=== PATIENT | male | born 1975 | race Caucasian/White ===

== ENCOUNTER 2021-07-30 21:38 | Emergency (ER) | payer SELFPAY ==
[~2021-07-30] VITALS: Ht 172.7 cm; Wt 75.0 kg
[2021-07-31 02:20] VITALS: BP 130/76
== END 2021-07-31 02:20 | disposition home or self-care (01) ==
LOC: ER 21:38 → EDBD 21:38 → ER 07-31 02:20
DX: F10.129 Alcohol abuse with intoxication, unspecified (principal); Y90.0 Blood alcohol level of less than 20 mg/100 ml; Z87.891 Personal history of nicotine dependence
CPT/HCPCS: 82962; 99283